=== PATIENT | female | born 1945 | race Caucasian/White ===

== ENCOUNTER 2016-09-20 06:02 | Inpatient (IN) | payer MEDICARE, SELFPAY ==
[2016-09-09 13:55] LABS: HEMATOCRIT 35.9 % (36.0-48.0); HEMOGLOBIN 12.1 g/dL (12.0-16.0)
[2016-09-09 14:07] LABS: BUN (BLOOD UREA NITROGEN) 15 MG/DL (6-23); CALCIUM, SERUM 8.7 MG/DL (8.5-10.4); CHLORIDE, SERUM 104 MMOL/L (96-112); CO2 (CARBON DIOXIDE) 30 MMOL/L (24-34); CREATININE 0.59 MG/DL (0.55-1.02); GFR AFRICAN AMERICAN 106 ML/MIN (>=60); GFR NON AFRICAN AMERICAN 92 ML/MIN (>=60); GLUCOSE, SERUM 90 MG/DL (60-99); POTASSIUM, SERUM 3.8 MMOL/L (3.5-5.3); SODIUM, SERUM 143 MMOL/L (135-148)
--- NOTE | ~2016-09-20 | OP ---
Record Of Operation [facility] [address] [place]. 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 PROCEDURE: 1. Ultrasound-guided percutaneous access, bilateral common femoral arteries with right femoral artery exposure for thoracic stent delivery. 2. Catheter placement in the thoracic aorta from bilateral femoral access. 3. Endovascular repair of proximal descending thoracic aortic aneurysm (Medtronic Valiant 32 x 32 x 100 endovascular device). SURGEON: Augusta Cantrell M.D. PHARMACY ASSISTANT: Ramiro. ANESTHESIA: General endotracheal. ESTIMATED BLOOD LOSS: 50 mL. CONTRAST: 53 mL. IV FLUIDS: 2000 mL. COMPLICATIONS: None. INDICATION: Ms. Bob is a pleasant 71-year-old female with proximal descending thoracic aortic aneurysm. It is focal and saccular in nature and worrisome to appearance for high risk of rupture. She is recommended for endovascular repair. DETAILS OF PROCEDURE: After informed consent was obtained, the patient was brought to the endovascular suite and placed in supine position. After administration of anesthesia, she was intubated. She was prepped and draped in the usual sterile fashion. A time-out was performed. I commenced the procedure with ultrasound-guided percutaneous access of bilateral common femoral arteries. Permanent image of the arteries documenting patency was saved and stored in the patient's chart. I accessed with micropuncture needles bilaterally and passed micropuncture wires, confirmed intra-arterial under fluoroscopy bilaterally. We placed micropuncture sheath, followed by Bentson wires. I then made a stab incision on the right down to the common femoral artery. On the left, a 5-Maltese sheath was placed over the Bentson wire. On the right, two ProGlide closure devices were placed in a pre-close technique, followed by an 11-Maltese sheath. We systemically heparinized. Wires were carefully advanced in the aortic arch. Catheter was advanced from bilateral femoral access. Record Of Operation [facility] [address] [place]. [address] NAME: MARIELY BOB : [birth year] STATUS : DIS IN PAT#: [id number] AGE: 71 ADM/REG DATE : 09/20/16 MR#: [id number] REPORT SERV DATE: 09/25/16 DICTATED BY: AUGUSTA CANTRELL. DATE: 09/25/16 REPORT STATUS : Draft TRANSCRIBED BY: MIKALA DATE: 09/25/16 I then exchanged for a Lunderquist wire from the right femoral access. Arch and proximal descending thoracic aortogram was performed, which showed a patent nonaneurysmal ascending and mid arch. There is normal arch vessel configuration. Origins of the arch vessels were patent with no stenosis. There was a focal saccular aneurysm visualized in the distal arch/proximal descending thoracic aorta. There was no contrast extravasation. After that, based on our preoperative measurements, we selected a Medtronic Valiant 32 x 32 x 100 proximal main thoracic stent graft. This was delivered from the right femoral access over the Lunderquist wire. This was deployed just distal to the left subclavian artery without difficulty. Repeat contrast injection showed perfect placement of the stent graft with no impingement of flow on the arch vessels and complete exclusion of the aneurysm. Satisfied with that, wires and catheters were removed. Right femoral access site was closed successfully with the pre-close technique. Left femoral access was closed with the ProGlide as well. The right groin incision was closed with 4-0 Monocryl and Dermabond. The patient tolerated the procedure well with no complications. I was present and participated in the entire case as dictated. AMBER/MIKALA Augusta Cantrell M.D. / [id number] CC: John Dickey W. A.
[~2016-09-20 06:02] MED LIST: ACET500CAP PO; BIST PO; LOTEMAX OPH SUSP5 ML OPH; MIRALAX POWDER1 PKT PO; PRILOSEC40 MG PO; PRINZIDE1 TAB PO; PROAIR HFA INH; RESTASIS OPH; SYSTANE OPH; TUMS E-X750 M2 PO
[2016-09-21 03:41] LABS: BASOPHILS 0.1 %; BASOPHILS ABSOLUTE 0.01 10/3/uL (0.0-0.16); EOSINOPHILS 0.1 %; EOSINOPHILS ABSOLUTE 0.01 10/3/uL (0.0-0.53); IMMATURE GRANULOCYTES 0.2 %; IMMATURE GRANULOCYTES ABSOLUTE 0.02 10/3/uL (0.0-0.11); LYMPHOCYTES 8.6 %; LYMPHOCYTES ABSOLUTE 0.95 10/3/uL (0.67-4.30); MEAN CORPUS HGB CONC 34.6 g/dL (32.0-36.0); MEAN CORPUSCULAR HEMOGLOB 31.1 pg (26.0-34.0); MEAN CORPUSCULAR VOLUME 89.8 fL (80-100); MEAN PLATELET VOLUME 10.3 fL (9.2-13.0); MONOCYTES 6.5 %; MONOCYTES ABSOLUTE 0.72 10/3/uL (0.21-1.20); NEUTROPHILS 84.5 %; NEUTROPHILS ABSOLUTE 9.37 10/3/uL (2.02-8.40); PLATELET COUNT 134 10/3/uL (150-400); RBC DISTRIBUTION WIDTH 13.1 % (12.0-16.0); RED CELL COUNT 3.54 10/6/uL (4.0-5.6); WHITE BLOOD CELLS 11.1 10/3/uL (4.5-10.5)
[2016-09-21 03:45] LABS: HEMATOCRIT 31.8 % (36.0-48.0); MANUAL DIFF NO %
[2016-09-21 03:53] LABS: BUN (BLOOD UREA NITROGEN) 8 MG/DL (6-23); CALCIUM, SERUM 8.8 MG/DL (8.5-10.4); CHLORIDE, SERUM 106 MMOL/L (96-112); CO2 (CARBON DIOXIDE) 28 MMOL/L (24-34); CREATININE 0.42 MG/DL (0.55-1.02); GFR AFRICAN AMERICAN 119 ML/MIN (>=60); GFR NON AFRICAN AMERICAN 102 ML/MIN (>=60); GLUCOSE, SERUM 109 MG/DL (60-99); POTASSIUM, SERUM 3.6 MMOL/L (3.5-5.3); SODIUM, SERUM 144 MMOL/L (135-148)
== END 2016-09-22 09:36 | disposition home or self-care (01) | DRG 221 ==
LOC: SDC/OF 06:02 → CVICU 12:50
PROVIDERS: Family Medicine Adult Medicine; Surgery
PROC: 02VW3DZ Restriction of Thoracic Aorta, Descending with Intraluminal Device, Percutaneous Approach (ICD-10-PCS; principal; 2016-09-20 08:15)
DX: I71.2 Thoracic aortic aneurysm, without rupture (principal); J44.9 Chronic obstructive pulmonary disease, unspecified; I10 Essential (primary) hypertension; F17.210 Nicotine dependence, cigarettes, uncomplicated; E78.00 Pure hypercholesterolemia, unspecified; K21.9 Gastro-esophageal reflux disease without esophagitis; Z88.1 Allergy status to other antibiotic agents; Z88.0 Allergy status to penicillin; Z91.041 Radiographic dye allergy status; Z88.7 Allergy status to serum and vaccine; Z79.899 Other long term (current) drug therapy
CPT/HCPCS: 33881; 36200; 71010; 75957; 76937; 80048; 85014; 85018; 85025; 87641; 93005; A9270-GY; C1760; C1769; C1876; C1894; J0690; J1200; J2250; J2405; J2550; J2710; J2720; J2930; J3010; Q9966